=== PATIENT | male | born 1975 | race Caucasian/White ===

== ENCOUNTER 2016-08-25 15:38 | Emergency (ER) | payer OTHER ==
--- NOTE | 2016-08-25 17:58 | ED CLINICAL REPORT ---
Clinical Report - Physicians/Mid Levels [facility] [address] [place] [address] 08/25/2016 15:40 Patient: KENIA HARE Time Seen: 1601. Arrived- By private vehicle. Historian- patient. HISTORY OF PRESENT ILLNESS Chief Complaint: Wants to stop drinking. Symptoms started today. Duration of substance abuse- months. Substances abused: Alcohol. (today). The patient has had nausea and been agitated. Not paranoid. No hallucinations or suicidal thoughts. Has not been depressed. The symptoms are described as severe. No injuries noted. No recent fall. Not assaulted. Similar symptoms previously: None. Recent medical care: Not recently seen/assessed. REVIEW OF SYSTEMS No chest pain or difficulty breathing. All systems otherwise negative, except as recorded above. PAST HISTORY See nurses notes. Medications: Atrovent HFA Inhalation, PRN. Allergies: Clindamycin.(Anaphylaxis). SOCIAL HISTORY Smoker- current status unknown. Alcohol use. History of drug use: marijuana. Has social support. Has place to stay. FAMILY HISTORY Negative. ADDITIONAL NOTES The nursing notes have been reviewed. PHYSICAL EXAM Vital Signs: 08/25/2016 15:54 BP: 157/107. HR: 103. RR: 17. O2 saturation: 94%. Temp: 98.3 F. Blood pressure normal. Oxygen saturation normal. Appearance: Alert. Oriented X3. No acute distress. Head: Head atraumatic. Eyes: Pupils equal, round and reactive to light. ENT: Normal ENT inspection. Airway intact. Moist mucous membranes. Pharynx normal. Neck: Normal inspection. Neck supple. CVS: Normal heart rate and rhythm. Heart sounds normal. Pulses normal. Respiratory: No respiratory distress. Breath sounds normal. Abdomen: Soft and nontender. No organomegaly. Back: Normal inspection. Skin: Skin warm and dry. Normal skin color. No rash. Normal skin turgor. Extremities: Extremities exhibit normal ROM. No lower extremity edema. Neuro: Alert. Oriented X 3. Mood/affect normal. Speech normal. Cranial nerves normal (as tested). No cerebellar findings. No motor deficit. No sensory deficit. (resting tremor. tongue fasciculations.). LABS, X-RAYS, AND EKG Laboratory Tests: UA-Culture if indicated: (YELENA: 08/25/2016 16:35) ( [facility] 08/25/2016 17:07) Final results Test Result Flag Units (Reference) URINE COLOR YELLOW URINE APPEARANCE CLEAR URINE GLUCOSE TRACE (NEGATIVE) URINE BILIRUBIN 1+ (NEGATIVE) URINE BILIRUBIN ICTOTEST POSITIVE (NEGATIVE) URINE KETONE 1+ (NEGATIVE) URINE SPECIFIC GRAVITY 1.025 (1.010-1.030) URINE PH 6.0 (5.0-8.0) URINE PROTEIN NEGATIVE (NEGATIVE) URINE UROBILINOGEN 1.0 EU/dL (0.2-1.0) URINE NITRITE NEGATIVE (NEGATIVE) URINE BLOOD NEGATIVE (NEGATIVE) URINE LEUK ESTERASE POSITIVE (NEGATIVE) URINE RBC NONE SEEN rbc/hpf (0-1) URINE WBC 3-5 wbc/hpf (0-1) URINE EPITHELIAL CELLS 0-1 EPI/hpf (0-5) URINE BACTERIA NONE SEEN (NONE SEEN) URINE COMMENT CULT NOT INDICATED 1+ MUCUSURINE CULTURES ARE SET-UP BASED ON THE FOLLOWING CRITERIA:POSITIVE NITRITEPOSITIVE LEUKOCYTE ESTERASEGREATER THAN 10 WHITE BLOOD CELLSMODERATE (2+) OR GREATER BACTERIA CBC w Diff: (YELENA: 08/25/2016 16:15) ( [facility] 08/25/2016 16:42) Final results Test Result Flag Units (Reference) WHITE BLOOD COUNT 4.7 K/uL (4.5-11.5) RED BLOOD COUNT 5.36 M/uL (4.50-5.90) HEMOGLOBIN 17.8 H gm/dL (13.5-17.5) HEMATOCRIT 51.0 % (41.0-53.0) MEAN CELL VOLUME 95 fL (80-100) MEAN CORPUSCULAR HGB 33 pg (26-34) MEAN CORPUSCULAR HGB CONC 35 g/dL (31-37) RED CELL DISTRIBUTION WIDTH 13.4 % (11.6-14.8) PLATELET COUNT 120 L K/uL (150-400) NEUTROPHIL % 46.1 L % (50-75) LYMPH % 44.1 H % (25-40) MONO % 8.5 % (3-14) EOSINOPHIL % 0.8 % (0-4) BASOPHIL % 0.5 % (0-2) PT with INR: (YELENA: 08/25/2016 16:15) ( MsgRcvd 08/25/2016 16:57) Final results Test Result Flag Units (Reference) INR 1.0 (0.8-1.2) Low Intensity Therapy: INR 1.5-2.0 PT range 18.5-23.1Mod.Intensity Therapy: INR 2.0-3.0 PT range 23.1-31.5High Intensity Therapy: INR 2.5-3.5 PT range 27.4-35.5High Intensity Therapy 2: INR 3.0-4.0 PT range 31.5-39.3 CMP: (YELENA: 08/25/2016 16:15) ( MsgRcvd 08/25/2016 16:46) Final results Test Result Flag Units (Reference) GLUCOSE 185 H mg/dL (70-110) BUN 6 L mg/dL (7-18) CREATININE 0.9 mg/dL (0.6-1.3) Estimated GFR >60 mL/min Estimated GFR- >60 mL/min Note: Persistent reduction over 3 months in eGFR<60 mL/min/1.73 m2 defines CKD. Patients with eGFR values>=60 mL/min/1.73 m2 may also have CKD if evidence ofpersistent proteinuria. Additional information may be foundat www.kidney.org. SODIUM 142 mmol/L (136-145) POTASSIUM 3.5 mmol/L (3.5-5.1) CHLORIDE 103 mmol/L (98-107) CARBON DIOXIDE 27 mmol/L (21-32) CALCIUM 8.4 L mg/dL (8.5-10.1) TOTAL PROTEIN 7.7 g/dL (6.4-8.2) ALBUMIN 3.9 g/dL (3.3-5.0) BILIRUBIN, TOTAL 1.3 H mg/dL (0.0-1.0) ALKALINE PHOSPHATASE 101 U/L (46-116) AST (SGOT) 127 H U/L (15-37) ALT (SGPT) 105 H U/L (12-78) LIPASE 209 U/L (73-393) ETHYL ALCOHOL 248 H mg/dL (3-10) . PROGRESS AND PROCEDURES Course of Care: The patient is a pleasant 41 yo male presenting for evaluation of alcohol withdraw. Patient reports wanting to stop his alcohol consumption. patient states he can't do it any more and knows he is harming himself. work up for live disease and hyponatremia ordered. IV valium was to be given however non-availble in the ED. PO valium given. WOrk up shows no significant electrolyte abnormalities. liver with signs of alcoholic hepatitis. INR normal. No signs of cirrhosis at this time. Did express my concerns to the patient about continued drinking and worsening liver function turning into cirrhosis. Patient expressed understanding. Patient's work up otherwise negative. No abdominal pain. Do not feel it is obstructive. Patient feeling much better with IV fluids and valium. Discussed with patient benzos and alcohol. Warned patient not to substutue one for the other and addiction to a prescription med is not a substitute. Further more discussed with patient his work up, diagnosis, home care, follow up, and return precautions. All questions answered. Patient expressed understanding of these instructions and was agreeable to them. Disposition: Discharged. Condition: good. CLINICAL IMPRESSION Acute alcoholic hepatitis. Alcohol withdrawal with agitation (acute). INSTRUCTIONS Warnings: GENERAL WARNINGS: Return or contact your physician immediately if your condition worsens or changes unexpectedly, if not improving as expected, or if other problems arise. Specifically return if pain, vomiting, bleeding, breathing difficulty or fever. Prescription Medications: Zofran (orally disintegrating tablets) 4 mg: take 1 orally every 8 hours as needed for nausea and vomiting. Dispense ten (10). No refill. Substitution is permissible. Valium 5 mg: take 1 orally every 8 hours for 5 days. Dispense five (5). No refill. Substitution is permissible. (symptoms of alcohol withdrawal) Follow-up: Return to the emergency department as needed. Follow up with your doctor in three days. Reason for referral: recheck today's concerns. Summary of care provided to patient via paper. Screening today revealed the patient's blood pressure to be in the normal range. The patient should follow up with a primary care provider for blood pressure management. Understanding of the discharge instructions verbalized by patient. Follow-up with: [facility], , , [address], [facility], [id number] Follow up in three days. Reason for referral: contact if you do not have a primary care doctor. Summary of care provided to patient via paper. (Electronically signed by Caleb Butterfield Dr. 08/28/2016 9:11)
--- NOTE | 2016-08-25 17:58 | ED NURSING NOTES ---
Clinical Report - [facility] [address] [place] [address] 08/25/2016 15:40 [id number] TRI[facility] Triage time 15:46 Christian 04 2016. Acuity: LEVEL 3. Chief Complaint: (Alcohol withdrawal). 15:54 08/25/16. Alert. No acute distress. SEPSIS SCREEN: Sepsis Screen. Negative (no infection suspected/documented). JACKIE COMA SCORE: [place] Coma Scale: 15- eyes open spontaneously (4); best verbal response- oriented x 4 (5); best motor response- obeys commands (6). --15:54 Minda Duong 15:54 08/25/16. BP: 157/107. HR: 103. RR: 17. O2 saturation: 94%. Temp: 98.3 F. Pain level now 7/10. --15:54 Minda Duong. Weight: 70.3 kg stated. Height/Length: 68 inches Per Patient. BMI: 23.6. --15:53 Minda Duong. Medications Atrovent HFA Inhalation, PRN. --15:52 Minda Duong. Medication/allergy information source: the patient. --15:54 Minda Duong. Allergies Clindamycin.(Anaphylaxis) --15:51 Minda Duong. History Arrived by private vehicle. Historian: patient. Accompanied by (Girlfriend). No primary care physician. This started today. ( Pt reports drinking 12 16 oz cans a day. Last drink was this am at 11, had 1.5 cans. Last drink before that was 0200 this AM. Pt reports that he usually vomits every morning and then starts drinking after. Has been drinking for years. Beer is beverage of choice. Reports auditory hallucinations. Has generalized pain/discomfort. Has family history of drinking.). He has had a cough. Reports muscle aches. No fever, weakness, difficulty breathing or skin rash. PAST MEDICAL HX: Immunizations: up-to-date. SOCIAL HX: Heavy tobacco smoker (cigarette)- 1 pack per day. Alcohol use. (12 16-18 oz cans of beer per day.). History of heavy drug use: marijuana. FALL RISK ASSESSMENT: Fall risk assessment completed. No fall risk identified. NUTRITIONAL RISK ASSESSMENT: The nutritional risk assessment revealed no deficiencies. FUNCTIONAL ASSESSMENT: Functional assessment: no impairments noted. LEARNING NEEDS ASSESSMENT: The learning needs assessment revealed no barriers. SKIN INTEGRITY ASSESSMENT: Skin integrity risk assessment completed. No skin integrity risk identified. --15:54 Minda Duong. PROBLEMS: Pneumonia. Alcohol Intoxication. --15:52 Minda Duong. ADDITIONAL SURGERIES: Jaw. --15:52 Minda Duong. Assessment The patient states feels the same. --15:54 Minda Duong. Interventions ID band on patient. --15:54 Minda Duong. PHYSICAL ASSESSMENT 15:55 08/25/16. Ambulatory to room. GENERAL / NEURO / PSYCH: Alert. Oriented X 4. Appears anxious. HEENT: Pupils equal, round and reactive to light. No facial asymmetry noted. Mucous membranes are pink. RESPIRATORY: Respirations not labored. The patient can speak in full sentences. Cough (states that he has had the cough since he had pneumonia in 2015.). CVS: Cardiac rhythm: sinus tachycardia. Capillary refill less than 2 seconds. SKIN: Skin intact. Skin is warm and dry. Normal skin turgor. --15:55 Minda Duong. NURSING PROGRESS NOTES 15:56 08/25/16. The plan of care for this patient has been created. quality assurance monitor chassis, pulse oximeter and NIBP monitor placed on patient; cafeteria monitor- Lead II; monitor alarms on. Patient gowned. Head of bed elevated. Reassurance given. Two patient identifiers checked. Call light placed in reach. Side rails up x 1. Bed placed in lowest position. Brakes of bed on. Patient ready for evaluation- chart flagged and ED physician notified. ( Pt reports history of withdrawal, states that today is most severe.). --15:56 Minda Duong 15:56 08/25/16. ( ERMD at bedside. Girlfriend at bedside.). --15:56 Minda Duong 16:18 08/25/2016 Site #1 started via IV in the right antecubital space with an 20g angiocath, with aseptic technique and good blood return; one attempt. Blood drawn: rainbow set. Labeled in the presence of the patient and sent to the lab. Saline lock flushed with 10 mL saline. --16:33 Minda Duong 16:28 08/25/2016 Valium (Diazepam) PO Tablets 10 mg given. Allergies verified, confirmed 5 rights and sedative warning given to the patient. --16:33 Minda Duong 16:34 08/25/16. ( Pt refused warm blanket. Pt escorted to bathroom with family member. Ambulates well.). --16:34 Minda Duong 16:40 08/25/2016 Started bag #1 1000 mL IV Fluids IV NS (Saline); at 1000 mL/hr over 1 hour(s) via site #1 via IV pump. Allergies verified and confirmed 5 rights. IV patency established. IV site checked: no pain, redness, or swelling. IV flushed thoroughly pre- and post-medication administration. --16:40 Minda Duong 16:40 08/25/2016 Zofran (Ondansetron HCl) IVP 4 mg given over 2 minute(s) via site #1. Allergies verified and confirmed 5 rights. IV patency established. IV site checked: no pain, redness, or swelling. IV flushed thoroughly pre- and post-medication administration. IVP given by RN. --16:40 Minda Duong 16:40 08/25/16. BP: 140/105. HR: 99. RR: 12. O2 saturation: 93% on room air. Pain level now: 09/30. --16:41 Minda Duong 16:41 08/25/16. --16:41 Minda Duong 17:19 08/25/16. BP: 134/89. HR: 88. O2 saturation: 94%. --17:19 Minda Duong 17:19 08/25/16. Reassessment after medication administered. Overall patient status is improved. --17:19 Minda Duong 17:42 08/25/2016 IV Fluids IV NS Discontinued: bag #1 infused. Total amount infused: 1000 mL. IV patency established. IV site checked: no pain, redness, or swelling. IV flushed thoroughly. --18:14 Minda Duong 18:13 08/25/2016 Site #1 removed upon discharge. Catheter intact. Pressure dressing applied. --18:13 Minda Duong. DISPOSITION / DISCHARGE 18:15 08/25/16. Departure time: 18:Aug 25 2016. Condition at departure: improved. The goals identified in the patient's plan of care were met. No learning barriers present. Discharge instructions provided and reviewed with the patient and family. Reviewed warnings (Sedation warning provided. Patient and family verbalized understanding.). Reviewed medication(s) side effects, precautions, dosing and course information. Prescription(s) given to the patient (Valium, Zofran). Treatments reviewed. Reviewed referral to a primary care physician for followup. Patient verbalized understanding. Written instructions provided in Albanian. ( Detox resource sheet provided to patient.). The patient was discharged by the physician. He was discharged home and accompanied by family. He left the Emergency Department ambulatory and via private vehicle. Family member driving. FALL RISK ASSESSMENT: Fall risk assessment completed. No fall risk identified. --18:15 Minda Duong 18:14 08/25/16. BP: 139/88. HR: 94. RR: 15 (regular). O2 saturation: 95% on room air. Temp: 98.1 F. Pain level now: 10. --18:15 Minda Duong. Locked/Released at 08/25/2016 18:17 by Minda uDong,
--- NOTE | 2016-08-25 17:58 | ED ORDER SUMMARY ---
..... Patient: KENIA HARE OrderSheet [facility] VisitID: [id number] [place] [address] 41y, M Registration Date/Time: 08/25/2016 ORDER SHEET Weight: 70.3 kg (stated) Allergies: Clindamycin GENERAL ORDERS: Web Solutions Architect (Continuous) (abnormal vitals) (16:07 08/25/2016 Luis Teixeira) (16:08 ASchmuck) CBC w Diff Urgent (16:08/25/2016 Luis Teixeira) (Ack 16:09 Include [employer] ER Tech1) (16:19 ASchmuck) CMP Urgent (16:08/25/2016 Luis Teixeira) (Ack 16:09 Include [employer] ER Tech1) (16:19 ASchmuck) UA-Culture if indicated Urgent (16:08 08/25/2016 Luis Teixeira) (Ack 16:09 Include [employer] ER Tech1) (16:40 ASchmuck) PT with INR Urgent (16:08 08/25/2016 Luis Teixeira) (Ack 16:09 Include [employer] ER Tech1) (16:19 ASchmuck) Lipase Urgent (16:08 08/25/2016 Luis Teixeira) (Ack 16:09 Include [employer] ER Tech1) (16:19 ASchmuck) Ethyl Alcohol Urgent (16:08 08/25/2016 Luis Teixeira) (Ack 16:09 Include [employer] ER Tech1) (16:19 ASchmuck) Pulse oximeter (16:08/25/2016 Luis Teixeira) (16:08 ASchmuck) MEDICATION ORDERS: Valium PO 10 mg (HIGH ALERT MEDICATION, NOW) (16:24 08/25/2016 Luis Teixeira) (16:33 ASchmuck) IV FLUIDS: IV NS : initial bolus 1000 mL (1000 mL/hr), then none - for X1 (NOW) (16:08/25/2016 Luis Teixeira) (Ack 16:19 ASchmuck) (16:40 ASchmuck) Valium IV 10 mg (HIGH ALERT MEDICATION, NOW) (16:08/25/2016 Luis Teixeira) (Ack 16:19 ASchmuck) (Cancelled: Duplicate Order16:23 Luis Teixeira) Zofran IV 4 mg (NOW) (16:08 08/25/2016 Luis Teixeira) (Ack 16:19 ASchmuck) (16:40 ASchmuck) ORDER SHEET NOTES: [Electronically signed by Minda Duong (18:17 08/25/2016)] [Electronically signed by Caleb Butterfield Dr. (09:11 08/28/2016)] [Electronically locked/signed by Minda Duong (18:17 08/25/2016)]
--- NOTE | 2016-08-25 17:58 | ED ORDER SUMMARY ---
..... Patient: KENIA HARE OrderSheet [facility] VisitID: [id number] [place] [address] 41y, M Registration Date/Time: 08/25/2016 ORDER SHEET Weight: 70.3 kg (stated) Allergies: Clindamycin GENERAL ORDERS: Process Developer (Continuous) (abnormal vitals) (16:07 08/25/2016 Luis Teixeira) (16:08 ASchmuck) CBC w Diff Urgent (16:08/25/2016 Luis Teixeira) (Ack 16:09 [facility] [employer] ER Tech1) (16:19 ASchmuck) CMP Urgent (16:08/25/2016 Luis Teixeira) (Ack 16:09 [employer] [employer] ER Tech1) (16:19 ASchmuck) UA-Culture if indicated Urgent (16:08 08/25/2016 Luis Teixeira) (Ack 16:09 [employer] [employer] ER Tech1) (16:40 ASchmuck) PT with INR Urgent (16:08 08/25/2016 Luis Teixeira) (Ack 16:09 [employer] [employer] ER Tech1) (16:19 ASchmuck) Lipase Urgent (16:08 08/25/2016 Luis Teixeira) (Ack 16:09 [employer] [employer] ER Tech1) (16:19 ASchmuck) Ethyl Alcohol Urgent (16:08 08/25/2016 Luis Teixeira) (Ack 16:09 [facility] [employer] ER Tech1) (16:19 ASchmuck) Pulse oximeter (16:08/25/2016 Luis Teixeira) (16:08 ASchmuck) MEDICATION ORDERS: Valium PO 10 mg (HIGH ALERT MEDICATION, NOW) (16:24 08/25/2016 Luis Teixeira) (16:33 ASchmuck) IV FLUIDS: IV NS : initial bolus 1000 mL (1000 mL/hr), then none - for X1 (NOW) (16:08/25/2016 Luis Teixeira) (Ack 16:19 ASchmuck) (16:40 ASchmuck) Valium IV 10 mg (HIGH ALERT MEDICATION, NOW) (16:08/25/2016 Luis Teixeira) (Ack 16:19 ASchmuck) (Cancelled: Duplicate Order16:23 Luis Teixeira) Zofran IV 4 mg (NOW) (16:08 08/25/2016 Luis Teixeira) (Ack 16:19 ASchmuck) (16:40 ASchmuck) ORDER SHEET NOTES: [Electronically signed by Minda Duong (18:17 08/25/2016)] [Electronically signed by Caleb Butterfield Dr. (09:11 08/28/2016)] [Electronically locked/signed by Minda Duong (18:17 08/25/2016)]
--- NOTE | 2016-08-28 09:11 | ED MAR SUMMARY ---
..... Medication Administration Record [facility] [address] [place] [address] Patient: KENIA HARE Visit ID: [id number] 41y, M Weight: 70.3 kg Height/Length: 68 in BMI: 23.6 ALLERGIES: Clindamycin Given 16:28 08/25/2016 Minda Duong, Medication Administered: VALIUM [PO] (DIAZEPAM), Dose: 10 mg Tablets PO. Medication Ordered: Valium PO 10 mg (HIGH ALERT MEDICATION, NOW). Start 16:40 08/25/2016 Minda Duong,, Stop 17:42 08/25/2016 Minda Duong, Medication Administered: IV NS (SALINE), Dose: IV Fluids over 1 hour(s), Rate: 1000 mL/hr, Dispensed: 1000 mL bag, Site: #1 right AC. Medication Ordered: IV NS : initial bolus 1000 mL (1000 mL/hr), then none - for X1 (NOW). Given 16:40 08/25/2016 Minda Duong, Medication Administered: ZOFRAN [IVP] (ONDANSETRON HCL), Dose: 4 mg IVP over 2 minute(s), Site: #1 right AC. Medication Ordered: Zofran IV 4 mg (NOW).
--- NOTE | 2016-08-28 09:11 | ED MED RECONCILIATION SUMMARY ---
Patient: KENIA HARE Medication Reconciliation Report [facility] VisitID: [id number] [address] [place] [address] 41y, M Registration Date/Time: 08/25/2016 Weight: 70.3 kg Height/Length: 68 in. BMI: 23.6 ALLERGIES: Clindamycin The patient's Home Medications are listed below: THE FOLLOWING MEDICATIONS NEED TO BE RECONCILED: Atrovent HFA Inhalation, PRN The source(s) of the original Home Medication information: patient The following Medications were given to the patient in the Emergency Department: Valium [PO] PO 10 mg, administered: 08/25/2016 4:28:00 PM IV NS IV Fluids bolus 0, then 1000 mL/hr, administered: 08/25/2016 4:40:00 PM Zofran [IVP] IVP 4 mg, administered: 08/25/2016 4:40:00 PM The following Medications were prescribed to the patient: Zofran (orally disintegrating tablets) 4 mg: take 1 orally every 8 hours as needed for nausea and vomiting. Dispense ten (10). No refill. Substitution is permissible. -- Caleb Butterfield Dr. Valium 5 mg: take 1 orally every 8 hours for 5 days. Dispense five (5). No refill. Substitution is permissible.(symptoms of alcohol withdrawal) -- Caleb Butterfield Dr.
--- NOTE | 2016-08-28 09:11 | ED MAR SUMMARY ---
..... Medication Administration Record [facility] [address] [place] [address] Patient: KENIA HARE Visit ID: [id number] 41y, M Weight: 70.3 kg Height/Length: 68 in BMI: 23.6 ALLERGIES: Clindamycin Given 16:28 08/25/2016 Minda Duong, Medication Administered: VALIUM [PO] (DIAZEPAM), Dose: 10 mg Tablets PO. Medication Ordered: Valium PO 10 mg (HIGH ALERT MEDICATION, NOW). Start 16:40 08/25/2016 Minda Duong,, Stop 17:42 08/25/2016 Minda Duong, Medication Administered: IV NS (SALINE), Dose: IV Fluids over 1 hour(s), Rate: 1000 mL/hr, Dispensed: 1000 mL bag, Site: #1 right AC. Medication Ordered: IV NS : initial bolus 1000 mL (1000 mL/hr), then none - for X1 (NOW). Given 16:40 08/25/2016 Minda Duong, Medication Administered: ZOFRAN [IVP] (ONDANSETRON HCL), Dose: 4 mg IVP over 2 minute(s), Site: #1 right AC. Medication Ordered: Zofran IV 4 mg (NOW).
--- NOTE | 2016-08-28 09:11 | ED DISCHARGE INSTRUCTIONS ---
Patient: KENIA HARE General Instructions [facility] VisitID: [id number] [address] [place] [address] 41y, M Registration Date/Time: 08/25/2016 Acute alcoholic hepatitis. Alcohol withdrawal with agitation (acute). INSTRUCTIONS Warnings: GENERAL WARNINGS: Return or contact your physician immediately if your condition worsens or changes unexpectedly, if not improving as expected, or if other problems arise. Specifically return if pain, vomiting, bleeding, breathing difficulty or fever. Prescription Medications: Zofran (orally disintegrating tablets) 4 mg: take 1 orally every 8 hours as needed for nausea and vomiting. Dispense ten (10). No refill. Substitution is permissible. Valium 5 mg: take 1 orally every 8 hours for 5 days. Dispense five (5). No refill. Substitution is permissible. (symptoms of alcohol withdrawal) Follow-up: Return to the emergency department as needed. Follow up with your doctor in three days. Reason for referral: recheck today's concerns. Summary of care provided to patient via paper. Screening today revealed the patient's blood pressure to be in the normal range. The patient should follow up with a primary care provider for blood pressure management. Understanding of the discharge instructions verbalized by patient. Follow-up with: [facility], , , [address], [place], [id number] Follow up in three days. Reason for referral: contact if you do not have a primary care doctor. Summary of care provided to patient via paper. ADDITIONAL INFORMATION Alcohol Withdrawal Alcohol withdrawal symptoms occur if you have been drinking steadily for at least several days, and your body gets used to the effect of alcohol. When you suddenly stop drinking (or, even just cut down your daily intake but continue to drink), you may develop alcohol withdrawal, also called the The usual symptoms last 3-4 days and include nervousness, shakiness, nausea, sweating, sleeplessness. In severe cases hallucinations (seeing things that are not there) and seizures can occur. Home Care: You will need plenty of rest and fluids over the next several days. Eat regular meals. Of course, do not drink any more alcohol. During this time, it is best that you stay with family or friends who can help and support you. You can also admit yourself to a residential detox program. Do not drive until all symptoms are gone and you are feeling better. If you were given sedative medication to reduce your symptoms, do not take it more often than prescribed and never take it with alcohol. Follow Up: Once you have gone through the withdrawal symptoms, you have fought half of the lucas. To avoid the risk of returning to your previous drinking pattern, it is essential that you get follow-up support and treatment. Alcoholics Anonymous offers support through a self-help fellowship. There are no dues or fees. See the Yellow Pages and call for time and place of meetings. www.aa.org [employer] offers support to families of alcohol users. 814.159.3489 www.al-anon.org [employer] [place] On Alcoholism And Drug Dependence 944-438-2572 www.ncadd.org Residential alcohol detox programs are available. Check the Yellow Pages under Drug Abuse & Treatment Centers. Get Prompt Medical Attention if any of the following occur: Severe shakiness Hallucinations Seizure Fever over 100.5 F (38.0 C) oral Headache, confusion, extreme drowsiness, inability to awaken Increasing upper abdominal pain Repeated vomiting or vomiting blood Ondansetron Oral disintegrating tablet What is this medicine? ONDANSETRON (on USMAN se bia) is used to treat nausea and vomiting caused by chemotherapy. It is also used to prevent or treat nausea and vomiting after surgery. How should I use this medicine? These tablets are made to dissolve in the mouth. Do not try to push the tablet through the foil backing. With dry hands, peel away the foil backing and gently remove the tablet. Place the tablet in the mouth and allow it to dissolve, then swallow. While you may take these tablets with water, it is not necessary to do so. Talk to your oxyacetylene burner regarding the use of this medicine in children. Special care may be needed. What side effects may I notice from receiving this medicine? Side effects that you should report to your doctor or health regular senior care provider as soon as possible: allergic reactions like skin rash, itching or hives, swelling of the face, lips, or tongue breathing problems dizziness fast or irregular heartbeat feeling faint or lightheaded, falls fever and chills swelling of the hands and feet tightness in the chest Side effects that usually do not require medical attention (report to your doctor or health regular senior care provider if they continue or are bothersome): constipation or diarrhea headache What may interact with this medicine? Do not take this medicine with any of the following medications: -apomorphine -cisapride -dofetilide -dronedarone -pimozide -thioridazine -ziprasidone This medicine may also interact with the following medications: -carbamazepine -phenytoin -rifampicin -tramadol -other medicines that prolong the QT interval (cause an abnormal heart rhythm) What if I miss a dose? If you miss a dose, take it as soon as you can. If it is almost time for your next dose, take only that dose. Do not take double or extra doses. Where should I keep my medicine? Keep out of the reach of children. Store between 2 and 30 degrees C (36 and 86 degrees F). Throw away any unused medicine after the expiration date. What should I tell my health care provider before I take this medicine? They need to know if you have any of these conditions: heart disease history of irregular heartbeat liver disease low levels of magnesium or potassium in the blood an unusual or allergic reaction to ondansetron, granisetron, other medicines, foods, dyes, or preservatives or trying to get breast-feeding What should I watch for while using this medicine? Check with your doctor or health regular senior care provider as soon as you can if you have any sign of an allergic reaction. Diazepam Oral tablet What is this medicine? DIAZEPAM (dye AZ e alisson) is a benzodiazepine. It is used to treat anxiety and nervousness. It also can help treat alcohol withdrawal, relax muscles, and treat certain types of seizures. How should I use this medicine? Take this medicine by mouth with a glass of water. Follow the directions on the prescription label. If this medicine upsets your stomach, take it with food or milk. Take your doses at regular intervals. Do not take your medicine more often than directed. If you have been taking this medicine regularly for some time, do not suddenly stop taking it. You must gradually reduce the dose or you may get severe side effects. Ask your doctor or health regular senior care provider for advice. Even after you stop taking this medicine it can still affect your body for several days. Talk to your oxyacetylene burner regarding the use of this medicine in children. Special care may be needed. What side effects may I notice from receiving this medicine? Side effects that you should report to your doctor or health regular senior care provider as soon as possible: allergic reactions like skin rash, itching or hives, swelling of the face, lips, or tongue angry, confused, depressed, other mood changes breathing problems feeling faint or lightheaded, falls muscle cramps problems with balance, talking, walking restlessness tremors trouble passing urine or change in the amount of urine unusually weak or tired Side effects that usually do not require medical attention (report to your doctor or health regular senior care provider if they continue or are bothersome): difficulty sleeping, nightmares dizziness, drowsiness, clumsiness, or unsteadiness, a hangover effect headache nausea, vomiting What may interact with this medicine? cimetidine grapefruit juice herbal or dietary supplements like kava kava, melatonin, [place]'s Wort, or valerian medicines for anxiety or sleeping problems, like alprazolam, lorazepam, or triazolam medicines for depression, mental problems or psychiatric disturbances medicines for HIV infection or AIDS prescription pain medicines rifampin, rifapentine, or rifabutin some medicines for seizures like carbamazepine, phenobarbital, phenytoin, or primidone What if I miss a dose? If you miss a dose, take it as soon as you can. If it is almost time for your next dose, take only that dose. Do not take double or extra doses. Where should I keep my medicine? Keep out of the reach of children. This medicine can be abused. Keep your medicine in a safe place to protect it from theft. Do not share this medicine with anyone. Selling or giving away this medicine is dangerous and against the law. Store at room temperature between 15 and 30 degrees C (59 and 86 degrees F). Protect from light. Keep container tightly closed. Throw away any unused medicine after the expiration date. What should I tell my health care provider before I take this medicine? They need to know if you have any of these conditions an alcohol or drug abuse problem bipolar disorder, depression, psychosis or other mental health condition glaucoma kidney or liver disease lung or breathing disease myasthenia gravis Parkinson's disease seizures or a history of seizures suicidal thoughts an unusual or allergic reaction to diazepam, other benzodiazepines, foods, dyes, or preservatives or trying to get breast-feeding What should I watch for while using this medicine? Visit your doctor or health regular senior care provider for regular checks on your progress. Your body can become dependent on this medicine. Ask your doctor or health regular senior care provider if you still need to take it. You may get drowsy or dizzy. Do not drive, use machinery, or do anything that needs mental alertness until you know how this medicine affects you. To reduce the risk of dizzy and fainting spells, do not stand or sit up quickly, especially if you are an older patient. Alcohol may increase dizziness and drowsiness. Avoid alcoholic drinks. Do not treat yourself for coughs, colds or allergies without asking your doctor or health regular senior care provider for advice. Some ingredients can increase possible side effects. You have been given the following additional information: Alcohol Withdrawal Ondansetron Oral disintegrating tablet Diazepam Oral tablet (Electronically signed by Caleb Butterfield Dr. 08/28/2016 9:11)
--- NOTE | 2016-08-28 09:11 | ED DISCHARGE INSTRUCTIONS ---
Patient: KENIA HARE General Instructions [facility] VisitID: [id number] [address] [place] [address] 41y, M Registration Date/Time: 08/25/2016 Acute alcoholic hepatitis. Alcohol withdrawal with agitation (acute). INSTRUCTIONS Warnings: GENERAL WARNINGS: Return or contact your physician immediately if your condition worsens or changes unexpectedly, if not improving as expected, or if other problems arise. Specifically return if pain, vomiting, bleeding, breathing difficulty or fever. Prescription Medications: Zofran (orally disintegrating tablets) 4 mg: take 1 orally every 8 hours as needed for nausea and vomiting. Dispense ten (10). No refill. Substitution is permissible. Valium 5 mg: take 1 orally every 8 hours for 5 days. Dispense five (5). No refill. Substitution is permissible. (symptoms of alcohol withdrawal) Follow-up: Return to the emergency department as needed. Follow up with your doctor in three days. Reason for referral: recheck today's concerns. Summary of care provided to patient via paper. Screening today revealed the patient's blood pressure to be in the normal range. The patient should follow up with a primary care provider for blood pressure management. Understanding of the discharge instructions verbalized by patient. Follow-up with: [facility], , , [address], [place], [id number] Follow up in three days. Reason for referral: contact if you do not have a primary care doctor. Summary of care provided to patient via paper. ADDITIONAL INFORMATION Alcohol Withdrawal Alcohol withdrawal symptoms occur if you have been drinking steadily for at least several days, and your body gets used to the effect of alcohol. When you suddenly stop drinking (or, even just cut down your daily intake but continue to drink), you may develop alcohol withdrawal, also called the The usual symptoms last 3-4 days and include nervousness, shakiness, nausea, sweating, sleeplessness. In severe cases hallucinations (seeing things that are not there) and seizures can occur. Home Care: You will need plenty of rest and fluids over the next several days. Eat regular meals. Of course, do not drink any more alcohol. During this time, it is best that you stay with family or friends who can help and support you. You can also admit yourself to a residential detox program. Do not drive until all symptoms are gone and you are feeling better. If you were given sedative medication to reduce your symptoms, do not take it more often than prescribed and never take it with alcohol. Follow Up: Once you have gone through the withdrawal symptoms, you have fought half of the lucas. To avoid the risk of returning to your previous drinking pattern, it is essential that you get follow-up support and treatment. Alcoholics Anonymous offers support through a self-help fellowship. There are no dues or fees. See the Yellow Pages and call for time and place of meetings. www.aa.org [employer] offers support to families of alcohol users. 291.310.9867 www.al-anon.org National [place] On Alcoholism And Drug Dependence 790-716-2555 www.ncadd.org Residential alcohol detox programs are available. Check the Yellow Pages under Drug Abuse & Treatment Centers. Get Prompt Medical Attention if any of the following occur: Severe shakiness Hallucinations Seizure Fever over 100.5 F (38.0 C) oral Headache, confusion, extreme drowsiness, inability to awaken Increasing upper abdominal pain Repeated vomiting or vomiting blood Ondansetron Oral disintegrating tablet What is this medicine? ONDANSETRON (on USMAN se bia) is used to treat nausea and vomiting caused by chemotherapy. It is also used to prevent or treat nausea and vomiting after surgery. How should I use this medicine? These tablets are made to dissolve in the mouth. Do not try to push the tablet through the foil backing. With dry hands, peel away the foil backing and gently remove the tablet. Place the tablet in the mouth and allow it to dissolve, then swallow. While you may take these tablets with water, it is not necessary to do so. Talk to your senior applications developer regarding the use of this medicine in children. Special care may be needed. What side effects may I notice from receiving this medicine? Side effects that you should report to your doctor or health director of health care marketing as soon as possible: allergic reactions like skin rash, itching or hives, swelling of the face, lips, or tongue breathing problems dizziness fast or irregular heartbeat feeling faint or lightheaded, falls fever and chills swelling of the hands and feet tightness in the chest Side effects that usually do not require medical attention (report to your doctor or health director of health care marketing if they continue or are bothersome): constipation or diarrhea headache What may interact with this medicine? Do not take this medicine with any of the following medications: -apomorphine -cisapride -dofetilide -dronedarone -pimozide -thioridazine -ziprasidone This medicine may also interact with the following medications: -carbamazepine -phenytoin -rifampicin -tramadol -other medicines that prolong the QT interval (cause an abnormal heart rhythm) What if I miss a dose? If you miss a dose, take it as soon as you can. If it is almost time for your next dose, take only that dose. Do not take double or extra doses. Where should I keep my medicine? Keep out of the reach of children. Store between 2 and 30 degrees C (36 and 86 degrees F). Throw away any unused medicine after the expiration date. What should I tell my health care provider before I take this medicine? They need to know if you have any of these conditions: heart disease history of irregular heartbeat liver disease low levels of magnesium or potassium in the blood an unusual or allergic reaction to ondansetron, granisetron, other medicines, foods, dyes, or preservatives or trying to get breast-feeding What should I watch for while using this medicine? Check with your doctor or health director of health care marketing as soon as you can if you have any sign of an allergic reaction. Diazepam Oral tablet What is this medicine? DIAZEPAM (dye AZ e alisson) is a benzodiazepine. It is used to treat anxiety and nervousness. It also can help treat alcohol withdrawal, relax muscles, and treat certain types of seizures. How should I use this medicine? Take this medicine by mouth with a glass of water. Follow the directions on the prescription label. If this medicine upsets your stomach, take it with food or milk. Take your doses at regular intervals. Do not take your medicine more often than directed. If you have been taking this medicine regularly for some time, do not suddenly stop taking it. You must gradually reduce the dose or you may get severe side effects. Ask your doctor or health director of health care marketing for advice. Even after you stop taking this medicine it can still affect your body for several days. Talk to your senior applications developer regarding the use of this medicine in children. Special care may be needed. What side effects may I notice from receiving this medicine? Side effects that you should report to your doctor or health director of health care marketing as soon as possible: allergic reactions like skin rash, itching or hives, swelling of the face, lips, or tongue angry, confused, depressed, other mood changes breathing problems feeling faint or lightheaded, falls muscle cramps problems with balance, talking, walking restlessness tremors trouble passing urine or change in the amount of urine unusually weak or tired Side effects that usually do not require medical attention (report to your doctor or health director of health care marketing if they continue or are bothersome): difficulty sleeping, nightmares dizziness, drowsiness, clumsiness, or unsteadiness, a hangover effect headache nausea, vomiting What may interact with this medicine? cimetidine grapefruit juice herbal or dietary supplements like kava kava, melatonin, [place]'s Wort, or valerian medicines for anxiety or sleeping problems, like alprazolam, lorazepam, or triazolam medicines for depression, mental problems or psychiatric disturbances medicines for HIV infection or AIDS prescription pain medicines rifampin, rifapentine, or rifabutin some medicines for seizures like carbamazepine, phenobarbital, phenytoin, or primidone What if I miss a dose? If you miss a dose, take it as soon as you can. If it is almost time for your next dose, take only that dose. Do not take double or extra doses. Where should I keep my medicine? Keep out of the reach of children. This medicine can be abused. Keep your medicine in a safe place to protect it from theft. Do not share this medicine with anyone. Selling or giving away this medicine is dangerous and against the law. Store at room temperature between 15 and 30 degrees C (59 and 86 degrees F). Protect from light. Keep container tightly closed. Throw away any unused medicine after the expiration date. What should I tell my health care provider before I take this medicine? They need to know if you have any of these conditions an alcohol or drug abuse problem bipolar disorder, depression, psychosis or other mental health condition glaucoma kidney or liver disease lung or breathing disease myasthenia gravis Parkinson's disease seizures or a history of seizures suicidal thoughts an unusual or allergic reaction to diazepam, other benzodiazepines, foods, dyes, or preservatives or trying to get breast-feeding What should I watch for while using this medicine? Visit your doctor or health director of health care marketing for regular checks on your progress. Your body can become dependent on this medicine. Ask your doctor or health director of health care marketing if you still need to take it. You may get drowsy or dizzy. Do not drive, use machinery, or do anything that needs mental alertness until you know how this medicine affects you. To reduce the risk of dizzy and fainting spells, do not stand or sit up quickly, especially if you are an older patient. Alcohol may increase dizziness and drowsiness. Avoid alcoholic drinks. Do not treat yourself for coughs, colds or allergies without asking your doctor or health director of health care marketing for advice. Some ingredients can increase possible side effects. You have been given the following additional information: Alcohol Withdrawal Ondansetron Oral disintegrating tablet Diazepam Oral tablet (Electronically signed by Caleb Butterfield Dr. 08/28/2016 9:11)
--- NOTE | 2016-08-28 09:11 | ED MED RECONCILIATION SUMMARY ---
Patient: KENIA HARE Medication Reconciliation Report [facility] VisitID: [id number] [address] [place] [address] 41y, M Registration Date/Time: 08/25/2016 Weight: 70.3 kg Height/Length: 68 in. BMI: 23.6 ALLERGIES: Clindamycin The patient's Home Medications are listed below: THE FOLLOWING MEDICATIONS NEED TO BE RECONCILED: Atrovent HFA Inhalation, PRN The source(s) of the original Home Medication information: patient The following Medications were given to the patient in the Emergency Department: Valium [PO] PO 10 mg, administered: 08/25/2016 4:28:00 PM IV NS IV Fluids bolus 0, then 1000 mL/hr, administered: 08/25/2016 4:40:00 PM Zofran [IVP] IVP 4 mg, administered: 08/25/2016 4:40:00 PM The following Medications were prescribed to the patient: Zofran (orally disintegrating tablets) 4 mg: take 1 orally every 8 hours as needed for nausea and vomiting. Dispense ten (10). No refill. Substitution is permissible. -- Caleb Butterfield Dr. Valium 5 mg: take 1 orally every 8 hours for 5 days. Dispense five (5). No refill. Substitution is permissible.(symptoms of alcohol withdrawal) -- Caleb Butterfield Dr.
== END 2016-08-25 16:15 | disposition home or self-care (01) ==
LOC: ED SRH 15:38
DX: F10.239 Alcohol dependence with withdrawal, unspecified (principal); K70.10 Alcoholic hepatitis without ascites; R45.1 Restlessness and agitation; Z79.899 Other long term (current) drug therapy; Z88.1 Allergy status to other antibiotic agents
CPT/HCPCS: 90004; 90100; 90469; 92010; 92235; 94060; 95059